=== PATIENT | female | born 1950 | race Caucasian/White ===

== ENCOUNTER 2022-03-02 10:25 | Inpatient (IN) | payer MEDICARE ==
[~2022-03-02] VITALS: Ht 162.6 cm; Wt 82.9 kg
[~2022-03-02 10:25] MED LIST: ATOR40TA72 PO; CLOP75TA15 PO; FURO-149 PO; METO-384 PO; NAPR220T67 PO
[2022-03-02 11:08] LABS: BASOPHILS # (AUTO) 0.1 X10'3 (0-0.2); EOSINOPHILS # (AUTO) 0.2 X10'3 (0-0.9); EOSINOPHILS % (AUTO) 2.2 % (0-6); HEMOGLOBIN 11.2 g/dl (12.0-16.0); LYMPHOCYTES # (AUTO) 1.3 X10'3 (1.1-4.8); LYMPHOCYTES % (AUTO) 14.7 % (21-51); MEAN CORPUSCULAR HEMOGLOBIN 21.1 PG (27.0-31.0); MEAN CORPUSCULAR HGB CONC 31.1 g/dL (33.0-36.5); MEAN CORPUSCULAR VOLUME 67.8 FL (78-98); MEAN PLATELET VOLUME 8.1 FL (7.4-10.4); MONOCYTES # (AUTO) 0.8 X10'3 (0-0.9); MONOCYTES % (AUTO) 9.7 % (2-12); NEUTROPHILS # (AUTO) 6.2 X10'3 (1.8-7.7); NEUTROPHILS % (AUTO) 72.4 % (42-75); PLATELET COUNT 346 X10'3 (140-440); RED BLOOD COUNT 5.32 X10'6 (4.20-5.60); RED CELL DISTRIBUTION WIDTH 21.2 % (11.5-14.5); WHITE BLOOD COUNT 8.6 X10'3 (4.5-11.0)
[2022-03-02 11:27] LABS: ALANINE AMINOTRANSFERASE 52 U/L (12-78); ALBUMIN/GLOBULIN RATIO 0.8 (1.1-1.5); ALKALINE PHOSPHATASE 221 IU/L (46-116); ANION GAP 12 (8-16); ASPARTATE AMINO TRANSFERASE 41 U/L (10-37); BILIRUBIN,TOTAL 0.7 MG/DL (0.1-1.0); BLOOD UREA NITROGEN 21 MG/DL (7-18); CHLORIDE 97 MMOL/L (99-107); GLUCOSE 317 MG/DL (70-104); POTASSIUM 3.7 MMOL/L (3.5-5.1); SODIUM 129 MMOL/L (135-145); TOTAL CARBON DIOXIDE 19.9 MMOL/L (24-32); TOTAL PROTEIN 6.6 G/DL (6.4-8.2)
[2022-03-02 11:38] LABS: BUN/CREATININE RATIO 22.6 (6.6-38.0); CREATININE 0.93 MG/DL (0.40-0.90); eGFR 59 ML/MIN
[2022-03-02 11:45] LABS: ANISOCYTOSIS 3+; MICROCYTOSIS 2+; PLATELET ESTIMATE NORMAL
[2022-03-02] MEDS ORDERED: nitroGLYCERIN 1gm ointment UD TP ONE (12:20)
[2022-03-02] MEDS ORDERED: furosemide 10 MG/1 ML 10ml inj IV ONE (12:20)
[2022-03-02] MEDS ORDERED: iohexol 350MG/ML 100ml bottle IV ONE (12:27)
[2022-03-02] MEDS ORDERED: acetaminophen 325mg tablet PO PRN (14:05)
[2022-03-02] MEDS ORDERED: PERFLUTREN PROTEIN-A MICROSPHR (Optison) 0.22 MG/ML 3ML VIAL IV ONE (14:05)
[2022-03-02] MEDS ORDERED: magnesium hydroxide 30ml (MOM) UD suspension PO PRN (14:05)
[2022-03-02] MEDS ORDERED: potassium Cl 20 mEq SR tablet PO PRN (14:05)
[2022-03-02] MEDS ORDERED: ondansetron/PF 4mg/2ml inj IV PRN (14:05)
[2022-03-02] MEDS ORDERED: magnesium 4gm in 100ml NS 100 ML IV PRN (14:05)
[2022-03-02] MEDS ORDERED: potassium Cl 40MEQ/1/2NS 520ml 520 ML IV PRN (14:05)
[2022-03-02] MEDS ORDERED: magnesium Cl slow-release 64mg tablet PO PRN (14:05)
[2022-03-02] MEDS ORDERED: mag hydrox/Alum hydrox/simeth 30ml oral suspension PO PRN (14:05)
[2022-03-02] MEDS ORDERED: CARV6.2553 PO (15:37)
[2022-03-02] MEDS ORDERED: NOVRI SQ (15:37)
[2022-03-02] MEDS ORDERED: METF-438 PO (15:37)
[2022-03-02] MEDS ORDERED: NPH,100V2 SQ (15:37)
[2022-03-02 15:43] LABS: POTASSIUM 3.8 MMOL/L (3.5-5.1)
--- NOTE | 2022-03-02 15:44 | NUR ---
RECIEVED VERBAL REPORT FROM LAB NA 131 K 3.8 CL 98 TROP 428
[2022-03-02 16:03] LABS: MAGNESIUM 1.5 MG/DL (1.5-2.4)
[2022-03-02] MEDS: docusate sod 100mg capsule PO SCH (19:36)
[2022-03-02] MEDS: furosemide 40mg/4ml inj IV SCH (19:36)
[2022-03-02] MEDS: K and/or MAG REPLACEMENT MC SCH (20:00)
[2022-03-02] MEDS: carvedilol 6.25mg tablet PO SCH ×2 (20:30→22:18)
[2022-03-02 22:08] LABS: HEMOGLOBIN A1C > 14.0 % (4.5-6.2)
[2022-03-02 22:16] VITALS: BP 102/72
[2022-03-03 02:00] VITALS: BP 112/71
--- NOTE | 2022-03-03 06:35 | NUR ---
Patient in room PCU 3023. I have received report from Gaby SCHWAB and had the opportunity to ask questions and assume patient care.Will follow care of Pt with Jacob BLOOM.Pt awake and denies needs. Pt looking at her tablet. Call light in reach. Addendum: 03/03/22 at 0636 by Anna Sharif RN Amended: Links added.
--- NOTE | 2022-03-03 06:36 | NUR ---
Patient in room U 3023. I have received report from Gaby SCHWAB and had the opportunity to ask questions and assume patient care. Patient is awake. Denies pain. No distress noted. Call light within reach. Addendum: 03/03/22 at 0638 by Jacob Faulkner LVN Amended: Links added.
[2022-03-03 07:17] LABS: ALBUMIN 2.2 G/DL (3.4-5.0); ANION GAP 10 (8-16); BASOPHILS # (AUTO) 0.1 X10'3 (0-0.2); BLOOD UREA NITROGEN 16 MG/DL (7-18); BUN/CREATININE RATIO 18.8 (6.6-38.0); CALCIUM 8.2 MG/DL (8.5-10.1); CHLORIDE 99 MMOL/L (99-107); CHOL/HDL RATIO 3.1 (0.00-4.99); CHOLESTEROL 121 MG/DL (0-200); CREATININE 0.85 MG/DL (0.40-0.90); EOSINOPHILS # (AUTO) 0.6 X10'3 (0-0.9); EOSINOPHILS % (AUTO) 6.9 % (0-6); GLUCOSE 242 MG/DL (70-104); HDL CHOLESTEROL 39 MG/DL (35-60); HEMOGLOBIN 11.3 g/dl (12.0-16.0); LDL CHOLESTEROL 65 MG/DL (50-100); LYMPHOCYTES # (AUTO) 1.5 X10'3 (1.1-4.8); MAGNESIUM 1.6 MG/DL (1.5-2.4); MEAN CORPUSCULAR HEMOGLOBIN 21.6 PG (27.0-31.0); MEAN CORPUSCULAR HGB CONC 32.2 g/dL (33.0-36.5); MEAN CORPUSCULAR VOLUME 67.1 FL (78-98); MEAN PLATELET VOLUME 8.9 FL (7.4-10.4); MONOCYTES # (AUTO) 0.8 X10'3 (0-0.9); MONOCYTES % (AUTO) 9.3 % (2-12); NEUTROPHILS # (AUTO) 5.8 X10'3 (1.8-7.7); NEUTROPHILS % (AUTO) 65.8 % (42-75); PLATELET COUNT 308 X10'3 (140-440); POTASSIUM 3.1 MMOL/L (3.5-5.1); RED BLOOD COUNT 5.22 X10'6 (4.20-5.60); RED CELL DISTRIBUTION WIDTH 20.3 % (11.5-14.5); SODIUM 136 MMOL/L (135-145); TOTAL CARBON DIOXIDE 26.8 MMOL/L (24-32); TRIGLYCERIDES 134 MG/DL (20-135); WHITE BLOOD COUNT 8.9 X10'3 (4.5-11.0); eGFR 66 ML/MIN
[2022-03-03] MEDS: potassium Cl 20 mEq SR tablet PO PRN ×3 (07:25→17:12)
[2022-03-03] MEDS: docusate sod 100mg capsule PO SCH ×2 (07:26→20:00)
[2022-03-03] MEDS: atorvastatin 20mg tablet PO SCH (07:27)
[2022-03-03] MEDS: carvedilol 6.25mg tablet PO SCH ×2 (07:27→20:00)
[2022-03-03] MEDS: K and/or MAG REPLACEMENT MC SCH ×2 (07:28→20:00)
[2022-03-03] MEDS: aspirin 81mg tab.chew PO SCH (07:30)
[2022-03-03] MEDS: furosemide 40mg/4ml inj IV SCH ×2 (07:51→20:00)
[2022-03-03 08:00] VITALS: BP 120/75
--- NOTE | 2022-03-03 08:52 | NUR ---
DR. FLORES NOTIFIED PAGER ID: [phone] MESSAGE: [id number] MAIKOL PATIENT BGM 229 THIS AM. NEED DM PROTOCOL AND MED REC. AMARILIS BLOOM
[2022-03-03] MEDS ORDERED: glucagon, human recombinant 1mg kit SUBCUT PRN (09:10)
[2022-03-03] MEDS ORDERED: dextrose 50%-water 50ml dispensing syringe IV PRN ×2 (09:10)
[2022-03-03] MEDS ORDERED: DEXTROSE 15 GM of carb/4 tabs (each vial/BOTTLE has 4 tablets) PO PRN ×2 (09:10)
[2022-03-03] MEDS: insulin Lispro (HumaLOG) vial - multi-dose SQ SCH ×3 (09:57→21:43)
[2022-03-03] MEDS ORDERED: FLU VACC QS2022-23(6MOS UP)/PF 60 MCG/0.5 ML SYRINGE IMVAC ONE (11:00)
[2022-03-03] MEDS ORDERED: pneumococcal 23-VAL P-sac vacc 25 mcg/0.5ml vial IMVAC ONE (11:00)
[2022-03-03 11:48] VITALS: BP 150/90
--- NOTE | 2022-03-03 12:03 | NUR ---
DM consult: Per EMR pt with T2DM, current A1c is >14.0%. Pt seen at bedside for written and verbal DM education. Pt states she usually goes to [facility] however has not gone for a couple of years though expresses desire to go back for a f/u visit. Pt states she hasn't been taking her medications per rx or checking her BG levels d/t it being too expensive to acquire both her medications and test strips. Pt reports working on getting supplemental insurance to assist with the costs. Recommend consult for financial issues. Pt states her last known A1c a few years ago was around 6.8% and roughly a month ago she was seeing BG level ranges in the low 100s with the highest being in the 120s. Pt states she does continue to monitor her CHO intake by limiting sugar, breads, and pastas and states she eats a lot of vegetables and protein. RD encouraged pt to f/u with physician at [facility] to assess need for med rx adjustments in view of elevated A1c. Pt verbalized understanding and denied questions at this time. RD contact information provided and pt encouraged to reach out if needed. Pt currently endorsing a good appetite and denies food allergies, difficulty chewing/swallowing, or constipation/diarrhea. Will continue to follow. Addendum: 03/03/22 at [address]6 [address] Gi Sánchez RD Amended: Links added.
[2022-03-03 15:43] VITALS: BP 97/41
--- NOTE | 2022-03-03 17:59 | NUR ---
Problems reprioritized. Patient report given, questions answered & plan of care reviewed with Leena SCHWAB. Bedside report completed. Pt eating and watching TV, Call light in reach. I have reviewed and agree with all interventions, assessments performed and documented by Jacob BLOOM. Addendum: 03/03/22 at 1802 by Anna Sharif RN Amended: Links added.
[2022-03-03 18:00] VITALS: BP 106/63
--- NOTE | 2022-03-03 18:04 | NUR ---
Problems reprioritized. Patient report given, questions answered & plan of care reviewed with Leena SCHWAB. Endorsed report. Pt sitting up eating dinner. Pt has no distress. Call light within reach. Addendum: 03/03/22 at 1814 by Jacob Faulkner LVN Amended: Links added.
[2022-03-03] MEDS: insulin glargine (Lantus) pen - multi-dose SQ SCH (21:18)
--- NOTE | 2022-03-03 22:00 | NUR ---
Pt. is awake alert oriented in good spirits BP 100/60 and HR 60 too low for antihypertensives and diuretics today. Had pecaceful night sleep no c/o sob.
[2022-03-03 23:29] VITALS: BP 100/60
[2022-03-04 03:00] VITALS: BP 122/72
--- NOTE | 2022-03-04 06:25 | NUR ---
Patient in room PCU 3023. I have received report from Leena SCHWAB and had the opportunity to ask questions and assume patient care. Will follow care of PT with Jacob BLOOM. Addendum: 03/04/22 at 0641 by Anna Sharif RN Amended: Links added.
--- NOTE | 2022-03-04 06:47 | NUR ---
Patient in room PCU 3023. I have received report from Leena SCHWAB and had the opportunity to ask questions and assume patient care. Bedside report given. Pt bedside report given. Patient has no distress. Patient has an intermittent cough noted. HOB elevated. V/S BP 109/61 HR 79, RR 18 , SPO 100 RA. Call light within reach. Addendum: 03/04/22 at 0655 by Jacob Faulkner LVN Amended: Links added.
[2022-03-04] MEDS: furosemide 40mg/4ml inj IV SCH (07:23)
[2022-03-04 07:24] VITALS: BP 109/61
[2022-03-04] MEDS: atorvastatin 20mg tablet PO SCH (07:34)
[2022-03-04] MEDS: aspirin 81mg tab.chew PO SCH (07:35)
[2022-03-04] MEDS: carvedilol 6.25mg tablet PO SCH ×2 (07:35→19:17)
[2022-03-04] MEDS: docusate sod 100mg capsule PO SCH ×2 (07:36→20:00)
[2022-03-04] MEDS: K and/or MAG REPLACEMENT MC SCH ×2 (08:00→20:00)
[2022-03-04 09:05] LABS: BASOPHILS # (AUTO) 0.1 X10'3 (0-0.2); BASOPHILS % (AUTO) 0.8 % (0-1); EOSINOPHILS # (AUTO) 0.7 X10'3 (0-0.9); HEMATOCRIT 40.7 % (35.0-45.0); HEMOGLOBIN 12.8 g/dl (12.0-16.0); LYMPHOCYTES # (AUTO) 1.9 X10'3 (1.1-4.8); LYMPHOCYTES % (AUTO) 18.9 % (21-51); MEAN CORPUSCULAR HEMOGLOBIN 21.3 PG (27.0-31.0); MEAN CORPUSCULAR HGB CONC 31.3 g/dL (33.0-36.5); MEAN CORPUSCULAR VOLUME 67.8 FL (78-98); MEAN PLATELET VOLUME 8.7 FL (7.4-10.4); MONOCYTES # (AUTO) 0.9 X10'3 (0-0.9); MONOCYTES % (AUTO) 8.8 % (2-12); NEUTROPHILS # (AUTO) 6.6 X10'3 (1.8-7.7); NEUTROPHILS % (AUTO) 64.5 % (42-75); PLATELET COUNT 394 X10'3 (140-440); RED BLOOD COUNT 6.01 X10'6 (4.20-5.60); WHITE BLOOD COUNT 10.2 X10'3 (4.5-11.0)
[2022-03-04] MEDS: insulin Lispro (HumaLOG) vial - multi-dose SQ SCH ×3 (09:10→19:14)
[2022-03-04 09:24] LABS: ALBUMIN 2.9 G/DL (3.4-5.0); ANION GAP 11 (8-16); BLOOD UREA NITROGEN 20 MG/DL (7-18); CALCIUM 8.4 MG/DL (8.5-10.1); CHLORIDE 99 MMOL/L (99-107); CREATININE 0.91 MG/DL (0.40-0.90); GLUCOSE 154 MG/DL (70-104); MAGNESIUM 1.7 MG/DL (1.5-2.4); POTASSIUM 3.5 MMOL/L (3.5-5.1); SODIUM 137 MMOL/L (135-145); TOTAL CARBON DIOXIDE 26.9 MMOL/L (24-32); eGFR 61 ML/MIN
[2022-03-04 09:36] LABS: ANISOCYTOSIS 3+; ELLIPTOCYTES 1+; MICROCYTOSIS 2+; PLATELET ESTIMATE NORMAL; POLYCHROMASIA 1+; SCHISTOCYTES FEW; TARGET CELLS FEW; TEAR DROP CELLS FEW
[2022-03-04 11:26] VITALS: BP 107/63
[2022-03-04 15:54] VITALS: BP 98/54
[2022-03-04 18:00] VITALS: BP 105/62
--- NOTE | 2022-03-04 18:15 | NUR ---
Problems reprioritized. Patient report given, questions answered & plan of care reviewed with Nely BLOOM. Bedside report given. Pt is happy, eating dinner. Call light within reach. No distress. breathing even and unlabored on room air. Addendum: 03/04/22 at 1816 by Jacob Faulkner LVN Amended: Links added.
--- NOTE | 2022-03-04 18:30 | NUR ---
Patient in room PCU 3023. I have received report from Jacob BLOOM and had the opportunity to ask questions and assume patient care.
--- NOTE | 2022-03-04 18:31 | NUR ---
I have reviewed and agree with all interventions, assessments performed and documented by Jacob BLOOM.Problems reprioritized. Patient report given, questions answered & plan of care reviewed with Nely BLOOM. Bedside report completed. Pt eating dinner. Call light in reach. Addendum: 03/04/22 at 1832 by Anna Sharif RN Amended: Links added.
[2022-03-04] MEDS: furosemide 20 MG/2 ML vial IV SCH (20:19)
[2022-03-04 22:00] VITALS: BP 103/60
[2022-03-04] MEDS: insulin glargine (Lantus) pen - multi-dose SQ SCH (22:26)
[2022-03-05 02:00] VITALS: BP 106/61
--- NOTE | 2022-03-05 06:02 | NUR ---
Problems reprioritized. Patient report given, questions answered & plan of care reviewed with Jacob BLOOM.
--- NOTE | 2022-03-05 06:29 | NUR ---
Patient in room PCU 3023. I have received report from Nely BLOOM and had the opportunity to ask questions and assume patient care. Bedside report given. Pt awake, lying supine in bed, no distress noted, patient bed in lowest position, call light within reach. Addendum: 03/05/22 at 0630 by Jacob Faulkner LVN Amended: Links added.
--- NOTE | 2022-03-05 06:32 | NUR ---
Patient in room PCU 3023. I have received report from Fidelia BLOOM and had the opportunity to ask questions and assume patient care.Bedside report completed. Will follow care of PT with Jacob BLOOM. Addendum: 03/05/22 at 0633 by Anna Sharif RN Amended: Links added.
[2022-03-05 06:46] LABS: BASOPHILS # (AUTO) 0.1 X10'3 (0-0.2); EOSINOPHILS # (AUTO) 0.7 X10'3 (0-0.9); EOSINOPHILS % (AUTO) 7.9 % (0-6); HEMATOCRIT 35.9 % (35.0-45.0); HEMOGLOBIN 11.3 g/dl (12.0-16.0); LYMPHOCYTES # (AUTO) 1.8 X10'3 (1.1-4.8); LYMPHOCYTES % (AUTO) 20.3 % (21-51); MEAN CORPUSCULAR HEMOGLOBIN 21.4 PG (27.0-31.0); MEAN CORPUSCULAR HGB CONC 31.5 g/dL (33.0-36.5); MEAN CORPUSCULAR VOLUME 67.8 FL (78-98); MEAN PLATELET VOLUME 8.6 FL (7.4-10.4); MONOCYTES # (AUTO) 0.9 X10'3 (0-0.9); MONOCYTES % (AUTO) 9.8 % (2-12); NEUTROPHILS # (AUTO) 5.4 X10'3 (1.8-7.7); PLATELET COUNT 315 X10'3 (140-440); RED BLOOD COUNT 5.29 X10'6 (4.20-5.60); RED CELL DISTRIBUTION WIDTH 20.8 % (11.5-14.5); WHITE BLOOD COUNT 8.9 X10'3 (4.5-11.0)
[2022-03-05 07:00] VITALS: BP 111/64
[2022-03-05 07:22] LABS: ALBUMIN 2.4 G/DL (3.4-5.0); ANION GAP 12 (8-16); BLOOD UREA NITROGEN 24 MG/DL (7-18); CALCIUM 7.9 MG/DL (8.5-10.1); CHLORIDE 98 MMOL/L (99-107); CREATININE 0.89 MG/DL (0.40-0.90); GLUCOSE 158 MG/DL (70-104); MAGNESIUM 1.7 MG/DL (1.5-2.4); POTASSIUM 3.3 MMOL/L (3.5-5.1); SODIUM 134 MMOL/L (135-145); TOTAL CARBON DIOXIDE 23.9 MMOL/L (24-32); eGFR 63 ML/MIN
[2022-03-05] MEDS: furosemide 20 MG/2 ML vial IV SCH (07:33)
[2022-03-05] MEDS: potassium Cl 20 mEq SR tablet PO PRN ×2 (07:42→12:32)
[2022-03-05] MEDS: carvedilol 6.25mg tablet PO SCH (07:42)
[2022-03-05] MEDS: aspirin 81mg tab.chew PO SCH (07:43)
[2022-03-05] MEDS: atorvastatin 20mg tablet PO SCH (07:44)
[2022-03-05] MEDS: K and/or MAG REPLACEMENT MC SCH (07:44)
[2022-03-05] MEDS: docusate sod 100mg capsule PO SCH (08:00)
[2022-03-05 08:11] LABS: ANISOCYTOSIS 3+; MICROCYTOSIS 2+; PLATELET ESTIMATE NORMAL; POIKILOCYTOSIS 1+
[2022-03-05] MEDS: insulin Lispro (HumaLOG) vial - multi-dose SQ SCH ×2 (08:43→14:07)
[2022-03-05 11:00] VITALS: BP 96/63
[2022-03-05] MEDS ORDERED: APIX5TAB3 PO (12:03)
[2022-03-05] MEDS ORDERED: FURO40TA4 PO (12:03)
[2022-03-05] MEDS ORDERED: ATOR20TA66 PO (12:03)
[2022-03-05] MEDS ORDERED: ASPI81TA53 PO (12:03)
[2022-03-05] MEDS ORDERED: POTA-207 PO (12:03)
--- NOTE | 2022-03-05 16:46 | NUR ---
I have reviewed and agree with all interventions, assessments performed and documented by Jacob BLOOM.
--- NOTE | 2022-03-05 16:46 | NUR ---
All written and verbal discharge instruction provided to patient. All questions answered. PIV discontinued. Pt donned her home clothing. Pt kept purse, cell phone, and vice admiral on person. Discharge medication list reviewed at length and importance of taking everything as ordered. She verbalized understanding. Pt was reinforced to roller picker her medications prior to running out x 1 week. Pt ambulated via wheelchair to friend picking her up. Addendum: 03/05/22 at 1649 by Jacob Faulkner LVN Amended: Links added. Addendum: 03/05/22 at 1650 by Jacob Faulkner LVN Pt forgot home medications in ziplock bag. She was notified. She stated she will roller picker medications 03/06/22 after she gets off of work. Charge nurse notified.
== END 2022-03-05 16:10 | disposition home or self-care (01) | DRG 280 ==
LOC: ER 10:25 → ED HOLD 14:08 → PCU 3S 21:45
PROVIDERS: ADMIT Family Medicine; ATTEND Family Medicine
PROC: B32T1ZZ Computerized Tomography (CT Scan) of Left Pulmonary Artery using Low Osmolar Contrast (ICD-10-PCS; 2022-03-02)
PROC: B3201ZZ Computerized Tomography (CT Scan) of Thoracic Aorta using Low Osmolar Contrast (ICD-10-PCS; 2022-03-02)
PROC: B32S1ZZ Computerized Tomography (CT Scan) of Right Pulmonary Artery using Low Osmolar Contrast (ICD-10-PCS; 2022-03-02)
PROC: 3E0234Z Introduction of Serum, Toxoid and Vaccine into Muscle, Percutaneous Approach (ICD-10-PCS; principal; 2022-03-03)
PROC: 3E02340 Introduction of Influenza Vaccine into Muscle, Percutaneous Approach (ICD-10-PCS; 2022-03-03)
DX: I11.0 Hypertensive heart disease with heart failure (principal); I21.A1 Myocardial infarction type 2; I50.33 Acute on chronic diastolic (congestive) heart failure; E11.9 Type 2 diabetes mellitus without complications; E78.00 Pure hypercholesterolemia, unspecified; E87.6 Hypokalemia; Z20.822 Contact with and (suspected) exposure to COVID-19; I08.3 Combined rheumatic disorders of mitral, aortic and tricuspid valves; I25.119 Atherosclerotic heart disease of native coronary artery with unspecified angina pectoris; I48.0 Paroxysmal atrial fibrillation; Z90.710 Acquired absence of both cervix and uterus; I25.2 Old myocardial infarction; Z91.199 Patient's noncompliance with other medical treatment and regimen due to unspecified reason; Z95.1 Presence of aortocoronary bypass graft; Z95.5 Presence of coronary angioplasty implant and graft; Z23 Encounter for immunization; Z88.5 Allergy status to narcotic agent; Z79.899 Other long term (current) drug therapy; Z79.4 Long term (current) use of insulin
CPT/HCPCS: 36415; 71045; 71275; 80048; 80053; 80061; 82948; 83036; 83735; 83880; 84132; 84484; 85008; 85025; 87081; 87502; 87503; 87635; 90686; 90732; 93005; 93306; 96374; 99285; A6258; C9803; G0378; J1815; J1940; J3490; Q9967